=== PATIENT | female | born 1990 | race Caucasian/White ===

== ENCOUNTER 2021-01-08 05:05 | Emergency (ER) | payer OTHER ==
[~2021-01-08 05:05] MED LIST: CEFDINIR300 MG PO; MACROBID100 MG PO; PYRIDIUM100 MG PO
[2021-01-08 05:42] LABS: BILIRUBIN 1+ mg/dL (NEGATIVE); BLOOD 3+ Ery/uL (NEGATIVE); CLARITY CLEAR (CLEAR); COLOR YELLOW (YELLOW); GLUCOSE (U) NORMAL (NORMAL); LEUKOCYTES TRACE Leu/uL (NEGATIVE); NITRITE NEGATIVE (NEGATIVE); PROTEIN 1+ mg/dL (NEGATIVE); SPECIFIC GRAVITY >=1.030 (1.001-1.030)
[2021-01-08 05:50] LABS: BACTERIA 1+; URINARY RBC 20-50
[2021-01-08 06:09] LABS: BASOPHIL 0.8 % (0-2); EOSINOPHIL 2.7 % (0-5); HCT 46.5 % (37.0-47.0); HGB 14.9 g/dl (12.5-16.0); LYMPHOCYTE 27.7 % (15-48); MCH 27.7 pg (25.0-31.0); MCV 86.6 fL (78.0-100.0); MONOCYTE 8.1 % (0-12); MPV 10.1 fL (6.0-9.5); NEUTROPHIL 60.3 % (41-80); NRBC 0; PLT 336 K/uL (150-400); RBC 5.37 M/uL (4.20-5.40); RDW 14.2 % (11.5-14.0); WBC 7.9 K/uL (4.0-10.5)
[2021-01-08 07:08] LABS: ALBUMIN 4.2 g/dL (3.4-5.0); BILIRUBIN - TOTAL 0.3 mg/dL (0.2-1.0); BUN/CREAT RATIO (CALC) 10.7 RATIO; CREATININE 0.75 mg/dL (0.51-0.95); GLOBULIN (CALCULATION) 4.1 g/dL; POTASSIUM 3.7 mmol/L (3.5-5.1); TOTAL PROTEIN 8.3 g/dL (6.4-8.2)
[2021-01-08] MEDS ORDERED: ONDANSETRON ODT4 MG PO (08:05)
[2021-01-08] MEDS ORDERED: OXY-IR 5MG5 MG PO (08:06)
== END 2021-01-08 08:30 | disposition home or self-care (01) ==
LOC: FER 05:05
PROVIDERS: Emergency Medicine
DX: N13.2 Hydronephrosis with renal and ureteral calculous obstruction (principal)
CPT/HCPCS: 36415; 80053; 81001; 85025; J1170; J1885; J2405; J7030

== ENCOUNTER 2021-01-12 09:59 | Emergency (ER) | payer OTHER ==
[~2021-01-12 09:59] MED LIST changes: +ONDANSETRON ODT4 MG PO; +OXY-IR 5MG5 MG PO
[2021-01-12 11:10] LABS: BILIRUBIN NEGATIVE (NEGATIVE); BLOOD NEGATIVE Ery/uL (NEGATIVE); CLARITY CLEAR (CLEAR); COLOR YELLOW (YELLOW); GLUCOSE (U) NORMAL (NORMAL); LEUKOCYTES 2+ Leu/uL (NEGATIVE); NITRITE NEGATIVE (NEGATIVE); PROTEIN 2+ mg/dL (NEGATIVE); SPECIFIC GRAVITY 1.015 (1.001-1.030)
[2021-01-12 11:28] LABS: BACTERIA 3+; URINARY RBC RARE; URINARY WBC 20-50
[2021-01-12 12:03] LABS: BASOPHIL 0.3 % (0-2); EOSINOPHIL 0.2 % (0-5); HCT 39.4 % (37.0-47.0); HGB 12.7 g/dl (12.5-16.0); LYMPHOCYTE 2.9 % (15-48); MCH 27.7 pg (25.0-31.0); MCHC 32.2 g/dL (32.0-36.0); MCV 85.8 fL (78.0-100.0); MONOCYTE 11.3 % (0-12); MPV 11.9 fL (6.0-9.5); NEUTROPHIL 83.4 % (41-80); NRBC 0; PLT 261 K/uL (150-400); RBC 4.59 M/uL (4.20-5.40); RDW 14.5 % (11.5-14.0); WBC 18.7 K/uL (4.0-10.5)
[2021-01-12 12:41] LABS: ALBUMIN 2.9 g/dL (3.4-5.0); ALKALINE PHOSHATASE 125 U/L (46-116); ALT 34 U/L (14-59); AST 23 U/L (15-37); BILIRUBIN - TOTAL 0.5 mg/dL (0.2-1.0); BUN 11 mg/dL (7-18); BUN/CREAT RATIO (CALC) 10.1 RATIO; CHLORIDE 100 mmol/L (98-107); CO2 (BICARBONATE) 27 mmol/L (21-32); CREATININE 1.09 mg/dL (0.51-0.95); GLOBULIN (CALCULATION) 4.7 g/dL; GLUCOSE 134 mg/dL (74-106); TOTAL PROTEIN 7.6 g/dL (6.4-8.2)
[2021-01-12 12:43] LABS: C-REACTIVE PROTEIN >18.00 mg/dL (<=0.90)
[2021-01-12] MEDS ORDERED: KEFLEX250 MG PO (18:30)
[2021-01-12] MEDS ORDERED: ZOFRAN4 M1 PO (18:30)
== END 2021-01-12 18:54 | disposition home or self-care (01) ==
LOC: FER 09:59
PROVIDERS: Internal Medicine
DX: N10 Acute pyelonephritis (principal); E87.6 Hypokalemia; R51.9 Headache, unspecified; Z20.822 Contact with and (suspected) exposure to COVID-19; Z87.440 Personal history of urinary (tract) infections
CPT/HCPCS: 36415; 70450; 70544; 70551; 80053; 81001; 85025; 86140; J0696; J7030; U0002

== ENCOUNTER 2021-02-18 17:06 | Emergency (ER) | payer OTHER ==
[~2021-02-18 17:06] MED LIST changes: +KEFLEX250 MG PO; +ZOFRAN4 M1 PO
[2021-02-18 20:19] LABS: BASOPHIL 0.2 % (0-2); EOSINOPHIL 0 % (0-5); HCT 42.8 % (37.0-47.0); HGB 13.9 g/dl (12.5-16.0); LYMPHOCYTE 2.8 % (15-48); MCH 27.9 pg (25.0-31.0); MCHC 32.5 g/dL (32.0-36.0); MCV 85.9 fL (78.0-100.0); MONOCYTE 1.8 % (0-12); MPV 9.8 fL (6.0-9.5); NEUTROPHIL 94.8 % (41-80); NRBC 0; PLT 315 K/uL (150-400); RBC 4.98 M/uL (4.20-5.40); RDW 14.4 % (11.5-14.0); WBC 17.8 K/uL (4.0-10.5)
[2021-02-18 20:20] LABS: BILIRUBIN NEGATIVE (NEGATIVE); BLOOD NEGATIVE Ery/uL (NEGATIVE); COLOR YELLOW (YELLOW); GLUCOSE (U) NORMAL (NORMAL); LEUKOCYTES NEGATIVE Leu/uL (NEGATIVE); NITRITE NEGATIVE (NEGATIVE); PROTEIN 1+ mg/dL (NEGATIVE); SPECIFIC GRAVITY 1.025 (1.001-1.030); UROBILINOGEN 0.2 mg/dL (0.2-1.0); pH 6.5 (5.0-9.0)
[2021-02-18 20:21] LABS: CLARITY SLIGHTLY HAZY (CLEAR)
[2021-02-18 20:27] LABS: BACTERIA 3+; MUCOUS TRACE; URINARY RBC RARE; URINARY WBC RARE
[2021-02-18 20:36] LABS: ALBUMIN 4.4 g/dL (3.4-5.0); BILIRUBIN - TOTAL 0.6 mg/dL (0.2-1.0); BUN/CREAT RATIO (CALC) 15.9 RATIO; CREATININE 0.63 mg/dL (0.51-0.95); GLOBULIN (CALCULATION) 4.5 g/dL; POTASSIUM 3.5 mmol/L (3.5-5.1); TOTAL PROTEIN 8.9 g/dL (6.4-8.2)
[2021-02-18] MEDS ORDERED: CARAFATE1 GM PO (21:47)
[2021-02-18] MEDS ORDERED: ONDANSETRON ODT4 MG SL (21:47)
[2021-02-18] MEDS ORDERED: NORCO 5-325 TA1 EACH PO (21:47)
[2021-02-18] MEDS ORDERED: PROTONIX 40MG T40 MG PO (21:47)
== END 2021-02-18 22:05 | disposition home or self-care (01) ==
LOC: FER 17:06
PROVIDERS: Emergency Medicine Emergency Medical Services
DX: K27.9 Peptic ulcer, site unspecified, unspecified as acute or chronic, without hemorrhage or perforation (principal)
CPT/HCPCS: 36415; 71045; 80053; 81001; 85025; J1885; J2405; J7030

== ENCOUNTER 2021-04-27 13:05 | Emergency (ER) | payer OTHER ==
[~2021-04-27 13:05] MED LIST changes: +CARAFATE1 GM PO; +NORCO 5-325 TA1 EACH PO; +ONDANSETRON ODT4 MG SL; +PROTONIX 40MG T40 MG PO
== END 2021-04-27 16:54 | disposition home or self-care (01) ==
LOC: FER 13:05
DX: S60.222A Contusion of left hand, initial encounter (principal); S20.214A Contusion of middle front wall of thorax, initial encounter; S60.042A Contusion of left ring finger without damage to nail, initial encounter; S60.032A Contusion of left middle finger without damage to nail, initial encounter; M25.532 Pain in left wrist; V43.52XA Car driver injured in collision with other type car in traffic accident, initial encounter
CPT/HCPCS: 71046; 73130